=== PATIENT | male | born 1940 | race Caucasian/White ===

== ENCOUNTER 2017-03-19 10:41 | Observation (INO) | payer OTHER ==
--- NOTE | 2017-03-19 11:23 | CPEKG ---
Heart Rate: 72 RR Interval: 833 P-R Interval: 196 QRSD Interval: 98 QT Interval: 400 QTC Interval: 438 P Benavides: 48 QRS Benavides: -30 T Wave Benavides: 11 EKG Severity - OTHERWISE NORMAL ECG - EKG Impression: SINUS RHYTHM EKG Impression: VENTRICULAR PREMATURE COMPLEX EKG Impression: LEFT AXIS DEVIATION Electronically Signed By: Madelyn Link 19-Mar-2017 21:36:59
[2017-03-19 12:23] LABS: % IMMATURE GRANULYOCYTES 0.2 % (0.0-1.1); ABSOLUTE IMMATURE GRANULOCYTES 0.16 10^3/uL (0.00-0.10); ABSOLUTE NRBC COUNT 0.05 10^3/uL (0-0.01); ADD DIFF? NO; ADD MORPH? NO; ADD SCAN? YES; ATYPICAL LYMPHOCYTE FLAG 10 (0-99); FRAGMENT RBC FLAG 0 (0-99); HEMATOCRIT 44.9 % (40.0-51.0); HEMOGLOBIN 15.1 g/dL (13.7-17.5); LEFT SHIFT FLG 10 (0-99); LIPEMIA HEMOLYSIS FLAG 80 (0-99); MEAN CELL HEMOGLOBIN CONCENTR. 33.6 g/dL (32.4-36.7); MEAN CELL VOLUME 95.1 fL (81.5-99.8); MEAN PLATELET VOLUME 10.5 fL (8.7-11.7); NRBC-AUTO% 0.1 % (0.0-0.2); PLATELET CLUMPS FLAG 0 (0-99); PLATELET COUNT 329 10^3/uL (150-400); RED BLOOD CELL COUNT 4.72 10^6/uL (4.40-6.38); RED CELL DISTRIBUTION WIDTH 14.2 % (11.5-15.2)
[2017-03-19 12:34] LABS: APTT 25.1 SEC (23.0-38.0); INR 1.09 (0.83-1.16)
[2017-03-19 12:43] LABS: ANION GAP 11 mEq/L (8-16); CALCIUM 9.8 mg/dL (8.5-10.4); CARBON DIOXIDE 22 mEq/l (22-31); CHLORIDE 112 mEq/L (97-110); CREATININE 0.9 mg/dL (0.7-1.3); GLOMERULAR FILTRATION RATE > 60; GLUCOSE 110 mg/dL (70-100); POTASSIUM 4.2 mEq/L (3.5-5.2); SODIUM 145 mEq/L (134-144)
[2017-03-19 12:46] LABS: SCAN POSITIVE
[2017-03-19 12:50] LABS: PLATELET ESTIMATE ADEQUATE (ADEQ)
[2017-03-19] MEDS ORDERED: GADOBUTROL 10 ML VIAL IVP ONE (12:57)
[2017-03-19] MEDS ORDERED: FLUTICASONE NASAL 120 SPRAYS/16 GM MDI EACHNARE PRN (16:13)
[2017-03-19] MEDS ORDERED: IBUPROFEN PO SCH (16:15)
[2017-03-19] MEDS ORDERED: PSEUDOEPHEDRINE HCL PO SCH (16:15)
[2017-03-19] MEDS ORDERED: TEMAZEPAM 15 MG CAP PO PRN (17:11)
[2017-03-19] MEDS ORDERED: ACETAMINOPHEN 325 MG TAB PO PRN (17:11)
[2017-03-19] MEDS ORDERED: ONDANSETRON DISINTEGRATING 4 MG TAB PO PRN (17:11)
[2017-03-19] MEDS ORDERED: ONDANSETRON 4 MG/2 ML VIAL IVP PRN (17:11)
--- NOTE | 2017-03-19 17:45 | GHP ---
[f rep st] HISTORY AND PHYSICAL DATE OF ADMISSION: 03/19/2017 CHIEF COMPLAINT: Double vision. 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 He has never had this before. His visual acuity, he reports, is normal. He has had probl ems with his depth perception as well. He moderately hit his head against a tree yesterday, though has no other trauma. He is quite dismissive about the severity of this event. In terms of his CLL, he underwent a splenectomy but has never had any medical treatment. He tells m elizabeth that his baseline white count is about 50,000 to 60,000. He is on a clinical trial; however, as a cholo, he has never taken any medicines for this. PAST MEDICAL/SURGICAL HISTORY: 1. CLL. 2. BPH. 3. Hyperlipidemia. MEDICATIONS: Please see medication reconciliation. ALLERGIES: Nitroglycerin. FAMILY HISTORY: Parents are . SOCIAL HISTORY: Occasionally drinks alcohol. He is from [place], visiting his daughters who live in the area. He has never smoked. REVIEW OF SYSTEMS: 10-point review of systems is conducted and is negative except per HPI. PHYSICAL EXAM: VITAL SIGNS: Blood pressure 119/67, heart rate is 56, respiration rate 14, saturati ng 92% on room air, temperature 36.4. GENERAL: The patient is a pleasant man who is holding his le ft eye closed, otherwise appears in no acute distress. NEUROLOGIC: Shows his pupils to be normal a nd reactive bilaterally. On rightward gaze, his left eye does not cross midline. He tells me that his symptoms are worse on the side. Otherwise, other cranial nerves are intact. Motor is intact in the upper and lower extremities as is sensation to light touch. He is alert and oriented x3. CARD IOVASCULAR: Regular rate and rhythm. No murmurs, rubs, or gallops. PULMONARY: Lungs clear to aus cultation bilaterally. ABDOMEN: Soft, nontender, nondistended. SKIN: No rash. : No Jenkins. P SYCHIATRIC: Shows normal mood and affect. LABS: White count is 66,000 with 86% lymphocytes. INR is 1.09. Sodium is 145, chloride 112, otherw ise basic metabolic panel is normal. DATA: 1. I discussed this with Dr. Haque who will see the patient in consultation. 2. 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 3. ECG shows sinus rhythm. He has left axis deviation. He has 1 PVC. There is nothing acutely is chemic. 4. Head CT shows question of a venous sinus thrombosis which was ruled out with the MRI, otherwise nothing acute. IMPRESSION AND PLAN: This is a 77-year-old man with diplopia, likely secondary to a 3rd cranial ner ve palsy. 1. Diplopia: On my exam, I think that this is due to a 3rd nerve palsy. I have discussed this Dr. Haque. Most common causes of this are microvascular in nature. He does have an old CVA seen on his MRI. Recommend CT angiogram of the head and neck which has been ordered and will be performed s oon to further evaluate. There is typically no acute treatment for these palsies other than comfort . Other considerations include an infiltrative disease from his CLL, though this seems less likely. We will provide him an eye patch for symptomatic comfort. I have also ordered q.4 neuro checks. 2. Chronic lymphocytic leukemia: Seems to be at his baseline. Never had any treatment for it. 3. Mild hypernatremia likely due to poor free water intake today. We will just recheck tomorrow. 4. BPH: Dutasteride and Flomax. 5. Hyperlipidemia: Statin. /[id number]/MODL
--- NOTE | 2017-03-19 18:19 | EDPHY ---
H & P Stated Complaint: pt states his depth perception is off since he woke up this morning Time Seen by Provider: 03/19/17 12:04 HPI/ROS: Chief complaint: Double vision History of present illness: This is a 77-year-old male with a history of CLL who presents to the emergency department for evaluation of double vision. Patient had states he woke this morning and noticed his vision was off. He was seeing double of everything. He felt dizzy described as off balance. He needed to hold onto things when he walks. He does state when he closes 1 of his eye symptoms appear to improve and are more tolerable. He denies precipitating factors. He denies other associated signs or symptoms including no headaches, no paresthesias, no weakness or paralysis, no bowel or bladder dysfunction. He has never had similar. 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 Eyes: Pupils equal and round no pallor or injection. ENT, Mouth: Mucous membranes moist. Respiratory: There are no retractions, lungs are clear to auscultation. Cardiovascular: Regular rate and rhythm. Gastrointestinal: Abdomen is soft and nontender, no masses, bowel sounds normal. Neurological: Alert and oriented x4. Cranial nerves 2-12 do appear grossly intact. Strength and sensation intact and symmetrical. No pronator drift. He is having trouble with cerebellar testing using finger to nose. There is no meningismus. Skin: Warm and dry, no rashes. Musculoskeletal: Neck is supple nontender. Extremities are symmetrical, full range of motion. Psychiatric: Patient is oriented X 3, there is no agitation. Constitutional: Initial Vital Signs Temperature (C) 36.2 C 03/19/17 10:47 Heart Rate 73 03/19/17 10:47 Respiratory Rate 18 03/19/17 10:47 Blood Pressure 99/75 L 03/19/17 10:47 O2 Sat (%) 95 03/19/17 10:47 O2 Delivery Mode Room Air Allergies/Adverse Reactions: nitroglycerin Allergy (Verified 03/19/17 10:46) Home Medications: Medication Instructions Recorded Dutasteride [Dutasteride] 1 cap PO HS 03/19/17 Fluticasone Nasal [Flonase Nasal 1 sprays NASAL DAILY PRN 03/19/17 Ashuelot (RX)] Herbals/Supplements -Info Only 1 ea PO DAILY 03/19/17 Ibuprofen/Pseudoephedrine HCl 1 each PO ONCE 03/19/17 [ADVIL COLD-SINUS LIQUI-GELS] Moisture Plus Eye Drops 1 drop EACHEYE PRN PRN 03/19/17 [place]-3 Fatty Acids [Fish Oil 1000 1,000 mg PO DAILY 03/19/17 mg (*)] Omeprazole [Omeprazole] 20 mg PO DAILY 03/19/17 Simvastatin [Simvastatin] 40 mg PO HS 03/19/17 Tamsulosin HCl [Tamsulosin HCl] 1 cap PO HS 03/19/17 Zicam Sinus Ashuelot 1 spray EACHNARE ONCE 03/19/17 Medical Decision Making - Diagnostics Imaging Results: Imaging Impressions Head CT 03/19/17 11:05 Impression: Equivocal evidence for venous sinus thrombosis. Otherwise nothing acute. Consider MRI for further evaluation. If there is clinical concern for venous sinus thrombosis, then recommend CT venography. Results called to Dr. Dalila Lowery 11:44 AM. General information for patients regarding this examination can be found at [email or web address]. If you have questions or comments about this report, please contact me at (hospital) or [phone] (cell). Brain MRI 03/19/17 12:07 Impression: Left deep parietal white matter lacunar infarct. Nothing acute identified. Venous sinus thrombosis is excluded. Results discussed with Cristi Carolina. Imaging: Discussed imaging studies w/ door to door sales representative Radiologist ED Course/Re-evaluation: Patient is discussed with my primary supervising physician Dr. Madelyn Link. Patient presents to the emergency department for double vision and feeling off balance. CT scan of the head was ordered by triage it was concerning for venous sinus thrombosis. However MRI of the brain with and without contrast was unremarkable for acute findings. Patient remained symptomatic and therefore was admitted to the hospital for further evaluation and care to Dr. Norman Zambrano. I did consult with Neurology Dr. Haque. He does recommend CT angiograms of the head and neck and possibly lumbar puncture. He will consult on this patient. Plan has been discussed with the patient voiced understanding and agreement with it. Differential Diagnosis: Included but not limited to CVA, intracranial tumor, intracranial bleed, ocular dysfunction - Data Points Laboratory Results: Laboratory Results 03/19/17 12:11 03/19/17 12:11 03/19/17 03/19/17 03/19/17 12:11 12:11 12:11 WBC 66.91 10^3/uL H* 10^3/uL (3.80-9.50) RBC 4.72 10^6/uL 10^6/uL (4.40-6.38) Hgb 15.1 g/dL g/dL (13.7-17.5) Hct 44.9 % % (40.0-51.0) MCV 95.1 fL fL (81.5-99.8) MCH 32.0 pg pg (27.9-34.1) MCHC 33.6 g/dL g/dL (32.4-36.7) RDW 14.2 % % (11.5-15.2) Plt Count 329 10^3/uL 10^3/uL (150-400) MPV 10.5 fL fL (8.7-11.7) Neut % (Auto) 7.5 % L % (39.3-74.2) Lymph % (Auto) 86.5 % H % (15.0-45.0) Denali % (Auto) 5.1 % % (4.5-13.0) Eos % (Auto) 0.3 % L % (0.6-7.6) Baso % (Auto) 0.4 % % (0.3-1.7) Nucleat RBC Rel Count 0.1 % % (0.0-0.2) Absolute Neuts (auto) 4.97 10^3/uL 10^3/uL (1.70-6.50) Absolute Lymphs (auto) 57.87 10^3/uL H 10^3/uL (1.00-3.00) Absolute Monos (auto) 3.43 10^3/uL H 10^3/uL (0.30-0.80) Absolute Eos (auto) 0.21 10^3/uL 10^3/uL (0.03-0.40) Absolute Basos (auto) 0.27 10^3/uL H 10^3/uL (0.02-0.10) Absolute Nucleated RBC 0.05 10^3/uL H 10^3/uL (0-0.01) Immature Gran % 0.2 % % (0.0-1.1) Seg Neutrophils % 9 % % Lymphocytes % 87 % % Monocytes % 5 % % Immature Gran # 0.16 10^3/uL H 10^3/uL (0.00-0.10) Absolute Seg Neuts 6.02 10^/uL 10^/uL (1.70-6.50) Absolute Lymphocytes 58.21 10^3/uL H 10^3/uL (1.00-3.00) Absolute Monocytes 3.35 10^3/uL H 10^3/uL (0.30-0.80) RBC/WBC/PLT Morphology NORMAL (NORMAL) Atypical Lymphocytes 3+ H Platelet Estimate ADEQUATE (ADEQ) Smear Review By Pending PT 14.0 SEC SEC (12.0-15.0) INR 1.09 (0.83-1.16) APTT 25.1 SEC SEC (23.0-38.0) Sodium 145 mEq/L H mEq/L (134-144) Potassium 4.2 mEq/L mEq/L (3.5-5.2) Chloride 112 mEq/L H mEq/L (97-110) Carbon Dioxide 22 mEq/l mEq/l (22-31) Anion Gap 11 mEq/L mEq/L (8-16) BUN 22 mg/dL mg/dL (7-23) Creatinine 0.9 mg/dL mg/dL (0.7-1.3) Estimated GFR > 60 Glucose 110 mg/dL H mg/dL (70-100) Calcium 9.8 mg/dL mg/dL (8.5-10.4) Departure - Departure Disposition: [facility] Inpatient Acute Clinical Impression: Diplopia Condition: Fair
[2017-03-19] MEDS ORDERED: TAMSULOSIN HCL 0.4 MG CAP PO SCH (21:00)
[2017-03-19] MEDS ORDERED: NON-FORMULARY NEW DRUG (Simvastatin [Simvastatin] 40 MG) PO SCH (21:00)
[2017-03-19] MEDS ORDERED: DUTASTERIDE 0.5 MG CAP PO SCH (21:00)
[2017-03-19] MEDS ORDERED: ATORVASTATIN CALCIUM 20 MG TAB PO SCH (21:00)
[2017-03-20 05:22] LABS: ADD MORPH? NO; ATYPICAL LYMPHOCYTE FLAG 0 (0-99); FRAGMENT RBC FLAG 0 (0-99); HEMATOCRIT 42.8 % (40.0-51.0); HEMOGLOBIN 14.5 g/dL (13.7-17.5); LEFT SHIFT FLG 0 (0-99); LIPEMIA HEMOLYSIS FLAG 90 (0-99); MEAN CELL HEMOGLOBIN 32.4 pg (27.9-34.1); MEAN CELL HEMOGLOBIN CONCENTR. 33.9 g/dL (32.4-36.7); MEAN CELL VOLUME 95.5 fL (81.5-99.8); MEAN PLATELET VOLUME 11.1 fL (8.7-11.7); PLATELET CLUMPS FLAG 0 (0-99); PLATELET COUNT 326 10^3/uL (150-400); RED BLOOD CELL COUNT 4.48 10^6/uL (4.40-6.38); RED CELL DISTRIBUTION WIDTH 14.5 % (11.5-15.2)
[2017-03-20 05:23] LABS: ALANINE AMINOTRANSFERASE 35 IU/L (21-72); ALBUMIN 3.2 g/dL (3.5-5.0); ALKALINE PHOSPHATASE 55 IU/L (38-126); ANION GAP 8 mEq/L (8-16); ASPARTATE AMINOTRANSFERASE 27 IU/L (17-59); BILIRUBIN,TOTAL 0.9 mg/dL (0.1-1.4); CALCIUM 9.3 mg/dL (8.5-10.4); CARBON DIOXIDE 21 mEq/l (22-31); CHLORIDE 112 mEq/L (97-110); CREATININE 0.9 mg/dL (0.7-1.3); GLOMERULAR FILTRATION RATE > 60; GLUCOSE 87 mg/dL (70-100); POTASSIUM 4.6 mEq/L (3.5-5.2); SODIUM 141 mEq/L (134-144); TOTAL PROTEIN 5.4 g/dL (6.3-8.2)
[2017-03-20 05:31] LABS: ADD DIFF? YES
[2017-03-20 05:33] LABS: ADD SCAN? NO
[2017-03-20 06:16] LABS: PLATELET ESTIMATE ADEQUATE (ADEQ)
[2017-03-20 08:02] VITALS: O2SAT 93
[2017-03-20] MEDS ORDERED: NON-FORMULARY NEW DRUG (Omeprazole [Omeprazole] 20 MG) PO SCH (09:00)
[2017-03-20] MEDS ORDERED: PANTOPRAZOLE SODIUM 40 MG TAB PO SCH (09:00)
[2017-03-20 11:19] VITALS: BP 118/70; PULSE 56; RESP 16; TEMP 97.6
--- NOTE | 2017-03-20 14:35 | PDCONSULT ---
Foreign Languages Department Chair Note: HOSPITAL NEUROLOGY CONSULT REQUESTING: Norman Zambrano MD REASON: diplopia HPI: This is a 77 year old right-handed man with a history of BPH, hyperlipidemia and CLL. He is not on treatment for CLL, but is followed at [facility] and is enrolled in a research study. He resides in [place], but is visiting family here in [place], [place]. He was admitted yesterday with new onset binocular diplopia. He states he woke up yesterday with diagonal diplopia that resolved by closing an eye. It persisted through the day, but he woke up this morning asymptomatic with the exception fo a very mild and dull headache that resolved on its own. He was not experiencing any vision loss, painful eye movements, photophobia or neck pain/stiffness. No other cranial neuropathies have been evident, such as facial weakness, ptosis, sensory changes in the face, speech disturbance, swallowing disturbance. No weakness/sensory loss in the extremities. No back pain. No gait problems. No SOB. He underwent and MRI brain wow which showed an old left parietal lacunar infarct abutting the lateral ventrical, but nothing acute and no pathologic enhancement. CTA head/neck was unremarkable. The hospitalist had observed normal pupillary function, but difficulty with the left eye adduction past midline with right lateral gaze. ROS: As per the HPI, otherwise a complete 12 point ROS was performed and is negative ALLERGIES AND MEDS: As recorded in the EMR - reviewed and reconciled PFSH: As per the intake H&P by Dr. Zambrano from yesterday EXAM: VS reviewed in EMR GEN: WDWN laying in NAD HEENT: NCAT, sclera anicteric, conjunctiva not injected, MMM, oropharynx clear, no scalp tenderness NECK: supple, nontender, no meningismus CV: RRR s1 s2 wo m/r/c/g. Carotid pulses 2+ wo bruit NEURO: MS: awake, alert, oriented to all spheres. Speech nondysarthric. Vocie with good volume and prosody. No language disturbance. Follows commands. Attends to both sides. Recent/remote memory grossly intact. Mood euthymic. Good fund of knowledge. CN: pupils 5mm round and reactive. Fundi with sharp discs. VFF. Primary gaze centered. No ptosis (including fatiguable ptosis). Full ocular motility (no fatiguable weakness). Facial sensation preserved. Face symmetric. Hearing grossly intact to finger rub. Palatoglossal movements intact. Shoulder shrug and head turn strong. MOTOR: normal bulk/tone. No adventitial movements. Full power throughout. No fatiguable weakness. SENSORY: intact to all modalities throughout. No extinction. COORD: no ataxia FN/HS. Romeo preserved. Romberg neg. REFLEX: plantars down. No clonus. Absent ankle jerks, other DTRs 1/4. GAIT: rises unassisted. Narrow base. Intact stride length/heel strike/toe lift /arm swing. Turns with 2 steps. Able to tandem without difficulty. DATA REVIEW: Labs reviewed in EMR PERSONALLY INTERPRETED RESULTS AND DATA: MRI brain wow - as per the HPI CTA head/neck - as per the HPI IMPRESSION AND RECOMMENDATIONS: // TRANSIENT BINOCULAR DIPLOPIA // CLL Patient with self-resolving diplopia last about 1 day in duration. Based on the described exam from the hospitalist on intake, he may have had a pupil sparing third nerve paresis. I discussed the intake exam with Dr. Zambrano - no evidence of nystagmus in the fellow eye with right lateral gaze. Differential of this self-limiting binocular diplopia with like third nerve paresis includes ischemic (has a silent lacunar infarct on MRI, so vascular risk is present, though seems a bit quick for recovery, but he did have a mild headache, which can be an epiphenomenon of ischemic cranial neuropathy), dysfunction of the NMJ (ie ocular myasthenia gravis, though no fatigability on exam today), leptomeningeal infiltration from CLL (early leptomeningeal disease can manifest initially with waxing/-waning symptoms). Patient would prefer to have the rest of his workup completed back home at [facility]. I discussed how he is likely going to need serum MG antibody evaluation (which we send to [facility] anyway), as well as CSF sampling with cytology. He would still like to have these tests performed at [facility]. I advised following up with PCP, as well, for vascular risk factor surveillance and optimization (checking A1c, LDL and maintaining normotension). Patient is going to be discharged today. He was advised to contact his providers at [facility] first thing tomorrow to arrange an appointment with the Department of Neurology. Return parameters to ED discussed.
--- NOTE | 2017-03-20 15:17 | GDS ---
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 2. History of chronic lymphocytic leukemia. 3. Diplopia. 4. History of hypertension. 5. BPH. 6. Hyperlipidemia. HOSPITAL COURSE: A 77-year-old man admitted with acute diplopia. On physical exam, this was due to a 3rd cranial nerve palsy with sparing of his pupil. He underwent extensive workup, including CT n on-con of his head, which was equivocal for venous sinus thrombosis with nothing else acute. Brain MRI, which ruled out venous sinus thrombosis. It did show an old left deep parietal white matter la cunar infarct. Head CT angiogram was normal, specifically negative for aneurysm. Neck CT angiogram showed minimal bilateral carotid plaque with less than 20% narrowing. It was evaluated by Dr. Awa desir of Neurology. Notably, his symptoms resolved somewhat spontaneously the morning following admis jl. The differential for this includes microvascular disease, leukemic infiltrate, myasthenia gra vis. We will hold off on performing additional tests at this point as he will follow up with the [facility] where he lives. He is comfortable with all these plans. He is discharged in stable condi tion. /[id number]/MODL
== END 2017-03-20 15:51 | disposition home or self-care (01) ==
LOC: INTOOBSV 14:41 → F3N 15:30
PROVIDERS: ADMIT Internal Medicine; ATTEND Internal Medicine
DX: H49.00 Third [oculomotor] nerve palsy, unspecified eye (principal); H53.2 Diplopia; N40.0 Benign prostatic hyperplasia without lower urinary tract symptoms; E78.5 Hyperlipidemia, unspecified; Z85.6 Personal history of leukemia
CPT/HCPCS: 70450; 70496; 70498; 70553; 93005; 97161; A9585; G0378; G8978; G8979

== ENCOUNTER 2018-11-18 15:59 | Inpatient (IN) | payer OTHER ==
--- NOTE | 2018-11-18 16:30 | EDPHY ---
H & P Stated Complaint: general malaise/cough Time Seen by Provider: 11/18/18 16:15 HPI/ROS: CHIEF COMPLAINT: Cough, fever, sore throat HISTORY OF PRESENT ILLNESS: Patient is a 70-year-old man with a history of CLL in remission as well as previous CVA and coronary artery disease that did not require stents. He flew here on Tuesday to be with his family. He is exposed to his grandson on he was diagnosed with influenza a. Today he developed sore throat, cough, fever and a mild headache. He is not concerned about the headache. He states that his oncologist told him to be very cautious about getting pneumonia so he wants to make sure he does not have pneumonia. His cough is not been productive. He felt a on documented fever at home but took Tylenol about 2 hr ago. No nausea vomiting or GI symptoms. No chest pain. No leg pain or swelling. No history of asthma, COPD or pulmonary disease. He did get a flu vaccination this year. Severity: Moderate Modifying factors: None REVIEW OF SYSTEMS: Constitutional: See HPI EENTM: denies: blurred vision, double vision, nose congestion Respiratory: See HPI Cardiac: denies: chest pain, irregular heart rate, lightheadedness, palpitations Gastrointestinal/Abdominal: denies: abdominal pain, diarrhea, nausea, vomiting, blood streaked stools Genitourinary: denies: dysuria, frequency, hematuria, pain Musculoskeletal: denies: joint pain, muscle pain Skin: denies: lesions, rash, jaundice, bruising Neurological: denies: headache, numbness, paresthesia, tingling, dizziness, weakness Hematologic/Lymphatic: denies: blood clots, easy bleeding, easy bruising Immunologic/allergic: denies: HIV/AIDS, transplant 10 systems reviewed and negative except as noted EXAM: GENERAL: Well-appearing, well-nourished and in no acute distress. HEAD: Atraumatic, normocephalic. EYES: Pupils equal round and reactive to light, extraocular movements intact, sclera anicteric, conjunctiva are normal. ENT: TMs normal, nares patent, oropharynx slightly erythematous without exudates. Moist mucous membranes. NECK: Normal range of motion, supple without lymphadenopathy or JVD. LUNGS: Breath sounds clear to auscultation bilaterally and equal. No wheezes rales or rhonchi. HEART: Regular rate and rhythm without murmurs, rubs or gallops. ABDOMEN: Soft, nontender, normoactive bowel sounds. No guarding, no rebound. No masses appreciated. BACK: No CVA tenderness, no spinal tenderness, step-offs or deformities EXTREMITIES: Normal range of motion, no pitting or edema. No clubbing or cyanosis. NEUROLOGICAL: Cranial nerves II through XII grossly intact. Normal speech, normal gait. 5/5 strength, normal movement in all extremities, normal sensation , normal reflexes PSYCH: Normal mood, normal affect. SKIN: Warm, dry, normal turgor, no visible rashes or lesions. 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 - Family History Significant Family History: No pertinent family hx - Social History Smoking Status: Never smoked Alcohol Use: None Constitutional: Initial Vital Signs Temperature (C) 37.4 C 11/18/18 16:03 Heart Rate 83 11/18/18 16:03 Respiratory Rate 18 11/18/18 16:03 Blood Pressure 102/48 L 11/18/18 16:03 O2 Sat (%) 91 L 11/18/18 16:03 O2 Delivery Mode Room Air Allergies/Adverse Reactions: nitroglycerin Allergy (Verified 11/18/18 16:08) Home Medications: Medication Instructions Recorded Atorvastatin Calcium [Lipitor 40 40 mg PO HS 11/18/18 mg (*)] Carvedilol [Coreg (*)] 3.125 mg PO BID 11/18/18 Clopidogrel Bisulfate [Clopidogrel] 75 mg PO DAILY 11/18/18 Dicloxacillin Sodium [Dynapen 500 500 mg PO QID 11/18/18 MG (*)] Dutasteride [Avodart 0.5 MG (*)] 0.5 mg PO DAILY 11/18/18 Fluticasone Nasal [Flonase Nasal 1 sprays EACHNARE DAILY PRN 11/18/18 [place] (RX)] Herbals/Supplements -Info Only 1 ea PO DAILY 11/18/18 [place]-3 Fatty Acids [Fish Oil 1000 1,000 mg PO DAILY 11/18/18 mg (*)] Pantoprazole Sodium [Protonix 40mg 40 mg PO DAILY PRN 11/18/18 (*)] Sulfamethox/Tmp 800/160 mg 1 tab PO BID 11/18/18 [Bactrim Ds] Tamsulosin HCl [Flomax 0.4 MG (*)] 0.4 mg PO HS 11/18/18 Tears/Dextran 70/Hypromellose 1 drop EACHEYE DAILY PRN 11/18/18 [Natural Balance Tears (*)] Medical Decision Making - Diagnostics EKG Interpretation: An EKG obtained and was read and documented in trace view. Please see trace view for full reading and report. Sinus rhythm, S1 q.3h T3 unchanged from previous Imaging Results: Imaging Impressions Chest X-Ray 11/18/18 16:27 Impression: Suspect right lower lobe pneumonia. Imaging: Discussed imaging studies w/ call or contact centre manager Radiologist ED Course/Re-evaluation: 5:44 p.m. I have been in the room several times discussing the patient's condition. In light of his also being positive for flu and history of CLL this places him at a higher risk in his port score calculates an 8% mortality. I recommended hospital admission and the patient and family agree. I spoke with Dr. Noonan who will accept. Will add blood cultures and lactate. Differential Diagnosis: Partial list of the Differential diagnosis considered include but were not limited to; influenza, pneumonia, strep throat and although unlikely based on the history and physical exam, I also considered sepsis, meningitis. - Data Points Laboratory Results: Laboratory Results 11/18/18 16:40 11/18/18 16:40 11/18/18 11/18/18 11/18/18 17:20 16:40 16:40 WBC RBC Hgb Hct MCV MCH MCHC RDW Plt Count MPV Neut % (Auto) Lymph % (Auto) Pender % (Auto) Eos % (Auto) Baso % (Auto) Nucleat RBC Rel Count Absolute Neuts (auto) Absolute Lymphs (auto) Absolute Monos (auto) Absolute Eos (auto) Absolute Basos (auto) Absolute Nucleated RBC Immature Gran % Seg Neutrophils % Band Neutrophils % Lymphocytes % Monocytes % Eosinophils % Basophils % Metamyelocytes % Myelocytes % Promyelocytes % Blast Cells % Immature Gran # Absolute Seg Neuts Absolute Band Neuts Absolute Lymphocytes Absolute Monocytes Absolute Eosinophils Absolute Basophils Absolute Metamyelocyte Absolute Myelocytes Absolute Promyelocytes Absolute Plasma Cells Atypical Lymphocytes Absolute Blast Cells Plasma Cells % Smudge Cells Platelet Estimate Schistocytes Smear Review By Sodium Potassium Chloride Carbon Dioxide Anion Gap BUN Creatinine Estimated GFR Glucose Calcium Procalcitonin 0.09 ng/mL ng/mL (0.02-0.10) Nasal Influenza A PCR FLU A DETECTED H (NEGATIVE) Nasal Influenza B PCR NEGATIVE FOR FLU B (NEGATIVE) Group A Strep Screen NEGATIVE (NEGATIVE) 11/18/18 11/18/18 16:40 16:40 WBC 48.04 10^3/uL H 10^3/uL (3.80-9.50) RBC 4.46 10^6/uL 10^6/uL (4.40-6.38) Hgb 14.4 g/dL g/dL (13.7-17.5) Hct 43.2 % % (40.0-51.0) MCV 96.9 fL fL (81.5-99.8) MCH 32.3 pg pg (27.9-34.1) MCHC 33.3 g/dL g/dL (32.4-36.7) RDW 14.2 % % (11.5-15.2) Plt Count 327 10^3/uL 10^3/uL (150-400) MPV 10.7 fL fL (8.7-11.7) Neut % (Auto) Not Reported Lymph % (Auto) Not Reported Pender % (Auto) Not Reported Eos % (Auto) Not Reported Baso % (Auto) Not Reported Nucleat RBC Rel Count Not Reported Absolute Neuts (auto) Not Reported Absolute Lymphs (auto) Not Reported Absolute Monos (auto) Not Reported Absolute Eos (auto) Not Reported Absolute Basos (auto) Not Reported Absolute Nucleated RBC Not Reported Immature Gran % Not Reported Seg Neutrophils % 10.0 % % Band Neutrophils % 1.0 % % Lymphocytes % 82.0 % % Monocytes % 4.0 % % Eosinophils % 0.0 % % Basophils % 0.0 % % Metamyelocytes % 0.0 % % Myelocytes % 0.0 % % Promyelocytes % 0.0 % % Blast Cells % 3.0 % % Immature Gran # Not Reported Absolute Seg Neuts 4.80 10^3/uL 10^3/uL (1.70-6.50) Absolute Band Neuts 0.48 10^3/uL 10^3/uL (0.00-0.70) Absolute Lymphocytes 39.39 10^3/uL H 10^3/uL (1.00-3.00) Absolute Monocytes 1.92 10^3/uL H 10^3/uL (0.30-0.80) Absolute Eosinophils 0.00 10^3/uL L 10^3/uL (0.03-0.40) Absolute Basophils 0.00 10^3/uL L 10^3/uL (0.02-0.10) Absolute Metamyelocyte 0.00 10^3/mL 10^3/mL (0.00-0.00) Absolute Myelocytes 0.00 10^3/mL 10^3/mL (0.00-0.00) Absolute Promyelocytes 0.00 10^3/uL 10^3/uL (0.00-0.00) Absolute Plasma Cells 0.00 10^3/uL 10^3/uL (0.00-0.00) Atypical Lymphocytes 3+ H Absolute Blast Cells 1.44 10^3/uL H 10^3/uL (0.00-0.00) Plasma Cells % 0.0 % % Smudge Cells 3+ H Platelet Estimate ADEQUATE (ADEQ) Schistocytes 1+ H Smear Review By Pending Sodium 138 mEq/L mEq/L (135-145) Potassium 4.2 mEq/L mEq/L (3.5-5.2) Chloride 108 mEq/L mEq/L (97-110) Carbon Dioxide 22 mEq/l mEq/l (22-31) Anion Gap 8 mEq/L mEq/L (6-14) BUN 19 mg/dL mg/dL (7-23) Creatinine 1.2 mg/dL mg/dL (0.7-1.3) Estimated GFR 59 Glucose 83 mg/dL mg/dL (70-100) Calcium 9.0 mg/dL mg/dL (8.5-10.4) Procalcitonin Nasal Influenza A PCR Nasal Influenza B PCR Group A Strep Screen Medications Given: Levofloxacin/Dextrose (Levaquin 750 Mg (Premix)) 150 mls @ 100 mls/hr IV EDNOW ONE PRN Reason: Protocol Stop: 11/18/18 19:08 Last Admin: 11/18/18 18:28 Dose: 150 mls Discontinued Medications Sodium Chloride (Ns) 2,200 mls @ 4,400 mls/hr 30 ml/kg infuse over 30 min ( 2200 ml) IV EDNOW ONE PRN Reason: Protocol Stop: 11/18/18 18:12 Last Admin: 11/18/18 18:24 Dose: 2,200 mls Oseltamivir Phosphate (Tamiflu) 75 mg PO EDNOW ONE Stop: 11/18/18 17:40 Last Admin: 11/18/18 18:29 Dose: 75 mg Departure - Departure Disposition: [facility] In[facility] Acute Clinical Impression: Influenza A Pneumonia Qualifiers: Pneumonia type: due to unspecified organism Laterality: right Lung location: lower lobe of lung Qualified Code(s): J18.1 - Lobar pneumonia, unspecified organism Condition: Fair
[2018-11-18 16:51] LABS: PLATELET COUNT 327 10^3/uL (150-400)
--- NOTE | 2018-11-18 17:09 | CPEKG ---
Test Reason : OPEN Blood Pressure : / mmHG Vent. Rate : 072 BPM Atrial Rate : 072 BPM P-R Int : 179 ms QRS Dur : 108 ms QT Int : 384 ms P-R-T Axes : 058 -20 006 degrees QTc Int : 421 ms Sinus rhythm Borderline left axis deviation Confirmed by Alejandro Garcia ([id number] on 11/18/2018 5:08:49 PM Referred By: ALEJANDRO GARCIA Confirmed By:Alejandro Garcia
[2018-11-18] MEDS ORDERED: OSELTAMIVIR PHOSPHATE 75 MG CAP PO ONE (17:39)
[2018-11-18] MEDS ORDERED: NS 2,200 ML IV ONE (17:43)
[2018-11-18] MEDS ORDERED: ONDANSETRON DISINTEGRATING 4 MG TAB PO PRN (17:52)
[2018-11-18] MEDS ORDERED: ONDANSETRON 4 MG/2 ML VIAL IVP PRN (17:52)
--- NOTE | 2018-11-18 17:57 | PDGENHP ---
History and Physical - Chief Complaint cough - History of Present Illness 70yo M with history of CLL presents with 1 day of cough and fevers. Recently travelled to [place] from [place] to visit family. Yesterday he developed a dry cough that has progressively become productive of whitish sputum. This morning he felt warm and had the chills. He also developed a sore throat. Denies nausea, vomiting, diarrhea, myalgias. He did receive the flu vaccine this year. His grandson has been sick and was actually just diagnosed with influenza A. He also has a granddaughter who has Strep throat. Because of his underlying CLL, he wanted to get evaluated so came to the ED. He tested positive for influenza A. His CXR shows a right middle lobe opacity and he received levofloxacin in the ED. He is being admitted for further monitoring and care. Case discussed with ED physician Isma Barroso. History Information - Allergies/Home Medication List Allergies/Adverse Reactions: nitroglycerin Allergy (Verified 11/18/18 16:08) Home Medications: Atorvastatin Calcium [Lipitor 40 mg (*)] 40 mg PO HS 11/18/18 [Last Taken ] Carvedilol [Coreg (*)] 3.125 mg PO BID 11/18/18 [Last Taken 11/18/18] Clopidogrel Bisulfate [Clopidogrel] 75 mg PO DAILY 11/18/18 [Last Taken 11/18/18 ] Dicloxacillin Sodium [Dynapen 500 MG (*)] 500 mg PO QID 11/18/18 [Last Taken ] Dutasteride [Avodart 0.5 MG (*)] 0.5 mg PO DAILY 11/18/18 [Last Taken 11/17/18] Fluticasone Nasal [Flonase Nasal [place] (RX)] 1 sprays EACHNARE DAILY PRN [Last Taken 11/18/18] Herbals/Supplements -Info Only 1 ea PO DAILY 11/18/18 [Last Taken Unknown] [place]-3 Fatty Acids [Fish Oil 1000 mg (*)] 1,000 mg PO DAILY 11/18/18 [Last Taken 11/18/18] Pantoprazole Sodium [Protonix 40mg (*)] 40 mg PO DAILY PRN 11/18/18 [Last Taken 11/16/18] Sulfamethox/Tmp 800/160 mg [Bactrim Ds] 1 tab PO BID 11/18/18 [Last Taken ] Tamsulosin HCl [Flomax 0.4 MG (*)] 0.4 mg PO HS 11/18/18 [Last Taken 11/17/18] Tears/Dextran 70/Hypromellose [Natural Balance Tears (*)] 1 drop EACHEYE DAILY PRN 11/18/18 [Last Taken Unknown] I have personally reviewed and updated: family history, medical history, social history, surgical history - Past Medical History Additional medical history: CLL (WBC usually ranges between 40-60k), CVA with no deficits, CAD with no prior PCI, BPH - Surgical History Additional surgical history: splenectomy, right 4th toe amputation - Family History Positive for: non-pertinent - Social History Smoking Status: Never smoked Alcohol Use: None Drug Use: None Additional social history: Visiting from [place]. Family lives in [facility]. Review of Systems Review of Systems: ROS: 10pt was reviewed & negative except for what was stated in HPI & below Physical Exam Physical Exam: Temp Pulse Resp BP Pulse Ox 37 C 70 18 110/62 92 11/18/18 17:15 11/18/18 17:15 11/18/18 17:15 11/18/18 17:15 11/18/18 17:15 Constitutional: no apparent distress, appears nourished, not in pain Eyes: PERRL, anicteric sclera, EOMI Ears, Nose, Mouth, Throat: moist mucous membranes, hearing normal, ears appear normal, no oral mucosal ulcers Cardiovascular: regular rate and rhythym, no murmur, rub, or gallop, No edema Respiratory: no respiratory distress, rhonchi (Right base), No expiratory wheeze Gastrointestinal: normoactive bowel sounds, soft, non-tender abdomen, no palpable masses Genitourinary: no bladder fullness, no bladder tenderness Skin: warm, normal color, no rashes or abrasions, no fluctuance, no induration, No mottled Musculoskeletal: full muscle strength, no muscle tenderness, normal joint ROM, no joint effusions Neurologic: AAOx3 Psychiatric: interacting appropriately, not anxious, not encephalopathic, thought process linear Lab Data & Imaging Review 11/18/18 16:40 11/18/18 16:40 WBC 48.04 10^3/uL (3.80-9.50) H 11/18/18 16:40 RBC 4.46 10^6/uL (4.40-6.38) 11/18/18 16:40 Hgb 14.4 g/dL (13.7-17.5) 11/18/18 16:40 Hct 43.2 % (40.0-51.0) 11/18/18 16:40 MCV 96.9 fL (81.5-99.8) 11/18/18 16:40 MCH 32.3 pg (27.9-34.1) 11/18/18 16:40 MCHC 33.3 g/dL (32.4-36.7) 11/18/18 16:40 RDW 14.2 % (11.5-15.2) 11/18/18 16:40 Plt Count 327 10^3/uL (150-400) 11/18/18 16:40 MPV 10.7 fL (8.7-11.7) 11/18/18 16:40 Neut % (Auto) Not Reported 11/18/18 16:40 Lymph % (Auto) Not Reported 11/18/18 16:40 [place] % (Auto) Not Reported 11/18/18 16:40 Eos % (Auto) Not Reported 11/18/18 16:40 Baso % (Auto) Not Reported 11/18/18 16:40 Nucleat RBC Rel Count Not Reported 11/18/18 16:40 Absolute Neuts (auto) Not Reported 11/18/18 16:40 Absolute Lymphs (auto) Not Reported 11/18/18 16:40 Absolute Monos (auto) Not Reported 11/18/18 16:40 Absolute Eos (auto) Not Reported 11/18/18 16:40 Absolute Basos (auto) Not Reported 11/18/18 16:40 Absolute Nucleated RBC Not Reported 11/18/18 16:40 Immature Gran % Not Reported 11/18/18 16:40 Seg Neutrophils % 10.0 % 11/18/18 16:40 Band Neutrophils % 1.0 % 11/18/18 16:40 Lymphocytes % 82.0 % 11/18/18 16:40 Monocytes % 4.0 % 11/18/18 16:40 Eosinophils % 0.0 % 11/18/18 16:40 Basophils % 0.0 % 11/18/18 16:40 Metamyelocytes % 0.0 % 11/18/18 16:40 Myelocytes % 0.0 % 11/18/18 16:40 Promyelocytes % 0.0 % 11/18/18 16:40 Blast Cells % 3.0 % 11/18/18 16:40 Immature Gran # Not Reported 11/18/18 16:40 Absolute Seg Neuts 4.80 10^3/uL (1.70-6.50) 11/18/18 16:40 Absolute Band Neuts 0.48 10^3/uL (0.00-0.70) 11/18/18 16:40 Absolute Lymphocytes 39.39 10^3/uL (1.00-3.00) H 11/18/18 16:40 Absolute Monocytes 1.92 10^3/uL (0.30-0.80) H 11/18/18 16:40 Absolute Eosinophils 0.00 10^3/uL (0.03-0.40) L 11/18/18 16:40 Absolute Basophils 0.00 10^3/uL (0.02-0.10) L 11/18/18 16:40 Absolute Metamyelocyte 0.00 10^3/mL (0.00-0.00) 11/18/18 16:40 Absolute Myelocytes 0.00 10^3/mL (0.00-0.00) 11/18/18 16:40 Absolute Promyelocytes 0.00 10^3/uL (0.00-0.00) 11/18/18 16:40 Absolute Plasma Cells 0.00 10^3/uL (0.00-0.00) 11/18/18 16:40 Atypical Lymphocytes 3+ H 11/18/18 16:40 Absolute Blast Cells 1.44 10^3/uL (0.00-0.00) H 11/18/18 16:40 Plasma Cells % 0.0 % 11/18/18 16:40 Smudge Cells 3+ H 11/18/18 16:40 Platelet Estimate ADEQUATE (ADEQ) 11/18/18 16:40 Schistocytes 1+ H 11/18/18 16:40 Sodium 138 mEq/L (135-145) 11/18/18 16:40 Potassium 4.2 mEq/L (3.5-5.2) 11/18/18 16:40 Chloride 108 mEq/L (97-110) 11/18/18 16:40 Carbon Dioxide 22 mEq/l (22-31) 11/18/18 16:40 Anion Gap 8 mEq/L (6-14) 11/18/18 16:40 BUN 19 mg/dL (7-23) 11/18/18 16:40 Creatinine 1.2 mg/dL (0.7-1.3) 11/18/18 16:40 Estimated GFR 59 11/18/18 16:40 Glucose 83 mg/dL (70-100) 11/18/18 16:40 Calcium 9.0 mg/dL (8.5-10.4) 11/18/18 16:40 Nasal Influenza A PCR FLU A DETECTED (NEGATIVE) H 11/18/18 16:40 Nasal Influenza B PCR NEGATIVE FOR FLU B (NEGATIVE) 11/18/18 16:40 Group A Strep Screen NEGATIVE (NEGATIVE) 11/18/18 17:20 Interpretation: CXR: normal heart size, no effusions, no pulmonary edema, right middle lobe infiltrate (interp by me) EKG additional interpertation: ECG: NSR, no acute ischemia, borderline left axis (interp by me) Assessment & Plan Assessment: 70yo M with history of CLL presents with 1 day of cough and fevers found to have influenza A and pneumonia. Plan: #Community acquired pneumonia: Involving right middle lobe. Either primary influenza pneumonia vs secondary bacterial process. Will treat for the latter given his underlying CLL. He is not hypoxic or septic. His PORT score indicates moderate risk (8-9%) of mortality. - Check procalcitonin - S/p levofloxacin 750mg in ED, will continue for now - Blood cultures drawn in the ED #Influenza A infection - Tamiflu 75mg BID x10 doses #CLL: WBC 48k, which patient reports is typical for him. He has had a splenectomy in the past. Not currently on therapy. #Sore throat: Group A strep screen negative. #BPH: Continue home meds. #CAD: No prior intervention. No angina. Continue plavix, statin, coreg. VTE ppx: LMWH Code: full Dispo: Admit under observation
[2018-11-18] MEDS ORDERED: TEARS/DEXTRAN 70/HYPROMELLOSE 15 ML OPHT.BTL EACHEYE PRN (19:18)
[2018-11-18] MEDS ORDERED: PANTOPRAZOLE SODIUM 40 MG TAB PO PRN (19:18)
[2018-11-18] MEDS: BENZONATATE 100 MG CAP PO PRN (19:50)
[2018-11-18] MEDS: TAMSULOSIN HCL 0.4 MG CAP PO SCH (19:51)
[2018-11-18] MEDS: guaiFENesin 600 MG TAB.ER PO PRN (19:51)
[2018-11-18] MEDS: ATORVASTATIN CALCIUM 40 MG TAB PO SCH (19:51)
[2018-11-18] MEDS: CARVEDILOL 3.125 MG TAB PO SCH (19:52)
[2018-11-19] MEDS: ACETAMINOPHEN 325 MG TAB PO PRN ×2 (00:28→11:53)
[2018-11-19] MEDS: BENZONATATE 100 MG CAP PO PRN ×2 (07:11→13:00)
[2018-11-19] MEDS: guaiFENesin 600 MG TAB.ER PO PRN ×2 (07:11→20:48)
[2018-11-19] MEDS: DUTASTERIDE 0.5 MG CAP PO SCH (07:51)
[2018-11-19] MEDS: CLOPIDOGREL BISULFATE 75 MG TAB PO SCH (07:51)
[2018-11-19] MEDS: ENOXAPARIN 40 MG/0.4 ML SYR SC SCH (07:51)
[2018-11-19] MEDS: CARVEDILOL 3.125 MG TAB PO SCH ×2 (08:00→17:44)
[2018-11-19] MEDS ORDERED: OSELTAMIVIR PHOSPHATE 75 MG CAP PO SCH (08:00)
[2018-11-19] MEDS: CEPACOL LOZENGE PO PRN ×2 (09:34→20:48)
--- NOTE | 2018-11-19 09:59 | ASMTCMCOM ---
CM Note CM Note Notes: Patient is a 70 year old man who presented to [facility] ED with sore throat, cough, fever, and mild headache with known Influenza A exposure (grandson diagnosed on and grand daughter with Strep throat). Patient has history of CLL in remission, previous CVA, and CAD. Patient reports his oncologist told him to be very cautious about pneumonia. Patient recently arrived to visit daughter/family from [place]. Patient admitted under observation to monitor for Community Acquired Pneumonia, Influenza A. Likely to discharge home with daughter when medically stable. CM to follow. D/C Plan: independent to daughters home. Date Signed: 11/19/2018 09:58 AM Electronically Signed By:Dalila De Jesus
--- NOTE | 2018-11-19 12:23 | HOSPPROG ---
Hospitalist Progress Note Assessment/Plan: 70yo M with history of CLL presents with 1 day of cough and fevers found to have influenza A and pneumonia. #Community acquired pneumonia: -Involving right middle lobe. -Either primary influenza pneumonia vs secondary bacterial process. -Will treat for the latter given his underlying CLL -procalcitonin is normal, DC abx -S/p levofloxacin 750mg in ED - Blood cultures drawn in the ED #Influenza A infection - Tamiflu 75mg BID x10 doses was ordered -pt threw up after taking -refusing further tamiflu #CLL: -WBC 44k, which patient reports is typical for him. -He has had a splenectomy in the past. Not currently on therapy. #Sore throat: -Group A strep screen negative. #BPH: -Continue home meds. #CAD: -No prior intervention. No angina. Continue plavix, statin, coreg. VTE ppx: LMWH Code: full Dispo: -still weak -not feeling able to go home -change to inpt status fro further supportive care Subjective: Very tired. Weak. Throat hurting. Objective: Vital Signs Temp Pulse Resp BP Pulse Ox 36.9 C 77 16 93/63 L 90 L 11/19/18 11:18 11/19/18 11:18 11/19/18 11:18 11/19/18 11:18 11/19/18 11:18 Laboratory Results 11/19/18 04:48 11/18/18 11/19/18 11/20/18 05:59 05:59 05:59 Intake Total 480 Balance 480 - Physical Exam Constitutional: appears nourished, not in pain, uncomfortable Eyes: PERRL, anicteric sclera, EOMI Ears, Nose, Mouth, Throat: moist mucous membranes, hearing normal, ears appear normal Cardiovascular: regular rate and rhythym, No JVD, No edema Respiratory: no respiratory distress, no rales or rhonchi, reduced air movement Gastrointestinal: normoactive bowel sounds, No tenderness, No ascites Skin: warm, normal color, No mottled Musculoskeletal: normal joint ROM, no joint effusions, generalized weakness Neurologic: AAOx3 Psychiatric: interacting appropriately, not anxious, not encephalopathic ICD10 Worksheet Patient Problems: Problems Problem Status Onset Diplopia Acute Pneumonia Acute Influenza A Acute
[2018-11-19] MEDS: FLUTICASONE NASAL 120 SPRAYS/16 GM MDI EACHNARE PRN (14:08)
--- NOTE | 2018-11-19 17:19 | PDMN ---
Medical Necessity Medical necessity: [facility] M282 Pneumonia, A-2 days: 78 yo w/ cough and fever dx w/ influenza A, CAP in setting of known CLL. Initially obs for workup/tx but pt requires additional MN as he developed hypotension requiring IV fluids after OBS period, pt still weak, inpt status for further supportive care. Change to IP status 11/19/18@1254 per INSURANCE AUDITOR order.
[2018-11-19] MEDS: TAMSULOSIN HCL 0.4 MG CAP PO SCH (20:49)
[2018-11-19] MEDS: ATORVASTATIN CALCIUM 40 MG TAB PO SCH (20:49)
[2018-11-20] MEDS: CARVEDILOL 3.125 MG TAB PO SCH (09:42)
[2018-11-20] MEDS: ENOXAPARIN 40 MG/0.4 ML SYR SC SCH (09:42)
[2018-11-20] MEDS: DUTASTERIDE 0.5 MG CAP PO SCH (09:42)
[2018-11-20] MEDS: CLOPIDOGREL BISULFATE 75 MG TAB PO SCH (09:42)
[2018-11-20] MEDS: ACETAMINOPHEN 325 MG TAB PO PRN (09:50)
[2018-11-20] MEDS: FLUTICASONE NASAL 120 SPRAYS/16 GM MDI EACHNARE PRN (11:11)
[2018-11-20 12:16] VITALS: BP 125/75
--- NOTE | 2018-11-20 17:01 | PDDCSUM ---
Discharge Summary Discharge Summary: Discharge diagnosis Influenza a Viral pneumonia Acute hypoxemic respiratory failure BPH Hypertension Patient is a 78-year-old male with past medical history of hypertension, BPH who was admitted with acute hypoxemic respiratory failure. Chest x-ray showed a right lower lobe pneumonia. Respiratory panel was positive for influenza A. He was originally started on Levaquin but this was discontinued once we found out that he had influenza. He continued to improve and on hospital day 3 was requiring no oxygen and requesting to go home. He was discharged home to follow up with his primary care physician in [place]. Disposition Home in good condition Follow-up With PCP I spent over 30 min on the discharge of this patient
== END 2018-11-20 16:35 | disposition home or self-care (01) | DRG 193 ==
LOC: F3E 18:49 → OBSVTOIN 11-19 12:54
PROVIDERS: ADMIT Internal Medicine; ATTEND Internal Medicine
DX: J10.08 Influenza due to other identified influenza virus with other specified pneumonia (principal); J96.01 Acute respiratory failure with hypoxia; C91.11 Chronic lymphocytic leukemia of B-cell type in remission; I95.9 Hypotension, unspecified; N40.0 Benign prostatic hyperplasia without lower urinary tract symptoms; I10 Essential (primary) hypertension; I25.10 Atherosclerotic heart disease of native coronary artery without angina pectoris
CPT/HCPCS: 96374; G0378; J1650; J1956; J2405